=== PATIENT | female | born 1975 | race Two or more races ===

== ENCOUNTER 2021-01-24 05:13 | Day surgery (SDC) | payer OTHER ==
[~2021-01-24 05:13] MED LIST: OMEGA 3 1,0001 EACH PO; SYNTHROID137 MCG PO; VITAMIN D PO
== END 2021-01-24 14:45 | disposition home or self-care (01) ==
LOC: CIR.AMB 05:13
PROVIDERS: ATTEND Obstetrics & Gynecology
DX: D26.1 Other benign neoplasm of corpus uteri (principal)